=== PATIENT | male | born 1960 | race Two or more races ===

== ENCOUNTER 2017-05-28 00:25 | Day surgery (SDC) | payer OTHER ==
--- NOTE | 2017-05-27 11:24 | NACHTIGAL H&P ---
DATE OF ADMISSION: May 28, 2017 CHIEF COMPLAINT Right inguinal hernia. HISTORY OF PRESENT ILLNESS This is a 56-year-old male with a right inguinal hernia. He has had it for a few years. It is gradually getting larger, causes him some pain occasionally. He is also interested in a screening colonoscopy. He has had no change in his bowel patterns, no family history of colon cancer. ALLERGIES He has no known allergies. CURRENT MEDICATIONS 1. Fluticasone spray. 2. Ibuprofen. 3. Tramadol. PAST MEDICAL HISTORY/OPERATIONS None. REVIEW OF SYSTEMS No cardiac, pulmonary, liver or kidney disease, diabetes or hypertension or history of deep venous thrombosis. PHYSICAL EXAMINATION LUNGS: Clear. HEART: Regular rhythm. INGUINAL EXAM: He has a reducible right inguinal hernia. IMPRESSION Right inguinal hernia and screening colonoscopy. PLAN Will do a colonoscopy and repair the hernia with mesh. We discussed the procedure, complications and recovery time. He seems to understand and wishes to proceed. JOSHUA
[~2017-05-28] VITALS: Ht 175.3 cm; Wt 79.8 kg
[2017-05-28 06:08] VITALS: BP 135/95
[2017-05-28 06:16] LABS: PLATELET COUNT, AUTOMATED 202 K/uL (150-450)
[2017-05-28] MEDS ORDERED: NORMOSOL R SOLN(*) 1000 ML BAG 1,000 ML IV PRN (06:30)
[2017-05-28] MEDS ORDERED: MIDAZOLAM 2 MG/2 ML VIAL IVP PRN (06:30)
[2017-05-28] MEDS ORDERED: LIDOCAINE/SOD BICARB 8.4% SYR ID ONE (06:30)
[2017-05-28] MEDS ORDERED: FAMOTIDINE 20 MG TAB PO ONE (06:30)
[2017-05-28] MEDS ORDERED: ceFAZolin(*) 1 GM VIAL 2 GM in NS(*) 0.9% 100 ML BAG 100 ML IVPB ONE (06:30)
[2017-05-28] MEDS ORDERED: PROPOFOL EMUL(*) 10MG/ML 20 ML 20 ML ONE (06:59)
[2017-05-28] MEDS ORDERED: DEXAMETHASONE SOD PHOS 10MG/ML ONE (06:59)
[2017-05-28] MEDS ORDERED: fentaNYL CITR 100 MCG/2 ML AMP ONE (06:59)
[2017-05-28] MEDS ORDERED: LIDOCAINE MPF 1% 5 ML VIAL ONE (06:59)
[2017-05-28] MEDS ORDERED: ONDANSETRON 4 MG/2 ML VIAL ONE (06:59)
[2017-05-28] MEDS ORDERED: KETAMINE HCL 200 MG/20 ML MDV ONE (07:03)
[2017-05-28] MEDS ORDERED: ROPIVACAINE 0.2% 20 ML VIAL ONE (07:03)
[2017-05-28] MEDS ORDERED: SUGAMMADEX SOD 200 MG/2 ML SDV ONE (07:05)
[2017-05-28] MEDS ORDERED: KETOROLAC 30 MG/ML VIAL ONE (07:06)
[2017-05-28] MEDS ORDERED: ePHEDrine 25 MG/5 ML DISP.SYR IVP ONE (07:29)
[2017-05-28] MEDS ORDERED: ROCURONIUM BROM 10 MG/ML 5 ML ONE (07:30)
--- NOTE | 2017-05-28 08:25 | Post Operative Progress Note ---
Post Operative Progress Note Date: May 28, 2017 Time: 08:23 Surgeon: renato Anesthesia: dr douglas Pre-Op Diagnosis: right inguinal hernia and screening colonoscopy Post-Op Diagnosis: direct inguinal hernia and 2 mm polyp in right colon Procedure(s): right inguinal hernia repair, kugel and colonoscopy with polypectomy ELISE EWING MD May 28, 2017 08:24
[2017-05-28] MEDS ORDERED: KET10 PO (08:26)
[2017-05-28] MEDS ORDERED: HYDR-4309 PO (08:26)
--- NOTE | 2017-05-28 08:27 | Short(Outpt) Discharge Summary ---
Discharge Summary Reason for Hosp/Final Diag: (1) Right inguinal hernia Hospital Course & Plan: direct inguinal hernia repaired with kugel mesh (2) Encounter for screening colonoscopy Hospital Course & Plan: 2 mm polyp in the right colon Departure Discharge to: Home Discharge Instructions Home Meds Active Scripts Hydrocodone Bit/Acetaminophen (NORCO 5-325 TABLET) 1 Each Tablet, 1 EACH PO Q4H Y for PAIN, #30 TAB Prov:ELISE EWING MD 05/28/17 Ketorolac Tromethamine (KETOROLAC TROMETHAMINE) 10 Mg Tab, 10 MG PO Q6H, #20 TAB Prov:ELISE EWING MD 05/28/17 Diet: Regular Activity: No Heavy Lifting Special Instructions: ice to incision for 48 hours remove bandage and shower to see me in one week, call [phone] for apt ELISE EWING MD May 28, 2017 08:27
[2017-05-28 09:30] VITALS: BP 131/94
[2017-05-28 09:45] VITALS: BP 128/96
[2017-05-28 10:00] VITALS: BP 135/97
[2017-05-28 10:14] VITALS: BP 131/100
[2017-05-28 10:17] VITALS: BP 122/92
[2017-05-28] MEDS ORDERED: APAP/HYDROCODONE 325/5 TAB PO ONE (10:25)
--- NOTE | 2017-05-28 16:07 | OPERATIVE REPORT 1 ---
EVENT DATE: May 28, 2017 SURGEON: Jamal Nobles MD ANESTHESIOLOGIST: Burak Chong mD ANESTHESIA: General. PREOPERATIVE DIAGNOSIS Screening colonoscopy. POSTOPERATIVE DIAGNOSIS A 2 mm polyp in the right colon. PROCEDURE PERFORMED Colonoscopy with polypectomy. DESCRIPTION OF PROCEDURE The patient was placed in the supine position and given general anesthetic. He was placed in the frogleg position. Digital exam was unremarkable. A flexible colonoscope was inserted and advanced to the cecum. He had an excellent bowel prep. Ileocecal valve, base of the cecum, and appendiceal orifice were identified. The scope was slowly withdrawn. Care was taken to look behind the haustral folds. No abnormalities were noted in the cecum. In the distal right colon, he had a small, 1 to 2 mm projection. This was removed with the cold cup. The rest of the right colon, transverse, descending, or sigmoid colon were normal. Rectum was normal. The scope was retroflexed, and that appeared to be normal. The patient will require a repeat colonoscopy in five years if that polyp is adenomatous. JOSHUA
--- NOTE | 2017-05-28 16:31 | OPERATIVE REPORT 1 ---
EVENT DATE: May 28, 2017 SURGEON: Jamal Nobles MD ANESTHESIOLOGIST: Burak Chong MD ANESTHESIA: General. PREOPERATIVE DIAGNOSIS Right inguinal hernia. POSTOPERATIVE DIAGNOSIS Right direct inguinal hernia. PROCEDURE PERFORMED Right inguinal hernia repair, Kugel technique. DESCRIPTION OF PROCEDURE The patient was placed in the supine position and given a general anesthetic. After the colonoscopy, the lower abdomen and genitalia were prepped and draped in a sterile fashion. We made a skin incision half way between the anterior superior iliac spine and pubic tubercle, 1 cm above this. Following skin lines , it was carried down through the skin and subcutaneous tissue to the muscle- splitting incision through the external and internal oblique and incised the transversalis fascia vertically. We raised the inferior epigastric vessels, dissecting the preperitoneal space. We dissected out the pubic tubercle and Fredy ligament. He had a direct inguinal hernia that was dissected out. We created room for the mesh with blunt dissection. We dissected the peritoneum off the cord structures back past where the vas deferens and the cord structures bifurcated. When we put tension on the testicle, there was no tension on the peritoneum. We then laid a medium Kugel patch into position and covered the pubic tubercle and Fredy ligament and extended past the internal ring. There were no sharp angulations. The transversalis fascia was then reapproximated with interrupted 3-0 Vicryl incorporating the mesh. The internal oblique was closed with running 3-0 Vicryl. The external oblique was closed with running 3-0 Vicryl. We injected 20 mL of 0.2% ropivacaine in the muscle and subcutaneous tissue. The subcutaneous tissue was reapproximated with 4-0 Maxon, and the skin was closed with interrupted 4-0 Maxon. Steri- Strips and an Airstrip were placed. The patient tolerated the procedure well with no apparent complications. [facility]
== END 2017-05-28 09:32 | disposition home or self-care (01) ==
LOC: OR 00:25
PROVIDERS: ATTEND Surgery
DX: Z12.11 Encounter for screening for malignant neoplasm of colon (principal); K63.5 Polyp of colon
CPT/HCPCS: 00811; 36415; 45380; 49505; 85025; 88305; C1781; J0690; J1100; J1885; J2001; J2250; J2405; J2704; J2795; J3010; J3490; J7050